=== PATIENT | female | born 2005 | race Asian ===

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

== ENCOUNTER 2023-01-02 22:57 | Emergency (ER) | payer OTHER ==
[2023-01-03 00:20] LABS: SARS-CoV-2 NAA Rapid Test Not Detected (NotDetected)
== END 2023-01-03 00:35 | disposition home or self-care (01) ==
LOC: CSHERS 22:57
DX: R59.0 Localized enlarged lymph nodes (principal); R05.9 Cough, unspecified; Z20.822 Contact with and (suspected) exposure to COVID-19
CPT/HCPCS: 99283